=== PATIENT | male | born 1985 | race Caucasian/White ===

== ENCOUNTER 2018-09-17 13:03 | Emergency (ER) | payer SELFPAY ==
[2018-09-17] MEDS ORDERED: fentaNYL 100 MCG/2 ML INJ IVP ONE (14:17)
[2018-09-17] MEDS ORDERED: ONDANSETRON 4 MG/2 ML VIAL IVP ONE (14:17)
[2018-09-17] MEDS ORDERED: NS 1,000 ML IV ONE (14:17)
--- NOTE | 2018-09-17 15:06 | EDPHY ---
General Time Seen by Provider: 09/17/18 15:03 Narrative: CHIEF COMPLAINT: fall from ladder HISTORY OF PRESENT ILLNESS: Patient presents by private vehicle with complaints of fall from ladder. He states that he was painting his house when he lost his balance and fell approximately 10feet striking and "went right through a plate glass window." This happened just prior to arrival. He reports head strike and questionable loss of consciousness. He complains of right hand and little finger pain, right forearm laceration, upper back pain, left wrist pain. Rated as moderate to severe. Worse with palpation and movement. Minimal improvement at rest. Has some difficulty straightening his right little finger. Bleeding reported as heavy from right arm laceration. He reports "feeling a little foggy and out of it, my vision is blurred and I'm not sure if I passed out." Denies any neck pain or stiffness. No abdominal or lower extremity pain. Tetanus up to date. No other associated complaints or modifying factors. REVIEW OF SYSTEMS: 10 systems were reviewed and negative with the exception of the elements mentioned in the history of present illness. PCP: None SPECIALISTS: None PAST MEDICAL HISTORY: denies ANTICOAGULATED: none PAST SURGICAL HISTORY: no recent surgery SOCIAL HISTORY: daily smoker. FAMILY HISTORY: non contributory EXAMINATION: General Appearance: Alert, no distress Head: normocephalic, atraumatic. No Patino sign. No raccoon eyes. no depression or deformity. Eyes: Pupils equal and round, no conjunctival pallor or injection. EOMs symmetric and painless. No diplopia with EOM. No nystagmus. visual adams intact by confrontation. ENT, Mouth: Mucous membranes moist Neck: c-collar placed in triage and not removed until CT imaging. midline trachea. no crepitus or deformity. Respiratory: Lungs are clear to auscultation. no wheezing, rhonchi or crackles. no paradoxical movements Cardiovascular: Regular rate and rhythm. no murmur. symmetric radial and DP pulses. good signs of perfusion to RUE distal to laceration Gastrointestinal: Abdomen is soft and nontender. no tympany, rigidity or guarding. Back: no midline tenderness. no crepitus or deformity. Neurological: CN II-XII grossly intact. A&O, nonfocal, steady gait. light sensory symmetric upper and lower extremities. strength symmetric upper and lower extremities. Skin: Warm and dry, no rash. 5cm curvilinear laceration over the dorsal aspect of his right forearm. partial thickness injury without injury to the deep tissue structures. no foreign body. no pulsatile bleeding. Extremities: tenderness of the right forearm laceration with soft compartments of the RUE. no bony tenderness of shoulders, elbow, hips, knees, ankles or calcaneus bilaterally. there is a mallet finger deformity of the right little finger. ROM is otherwise within normal limits. there is mild tenderness of the left wrist without snuffbox tenderness. Normal and symmetric movement of the interossei. Psychiatric: Mood and affect normal DIFFERENTIAL DIAGNOSES: Including but not limited to concussion, skull fracture, intracranial hemorrhage , cervical sprain, cervical strain, finger fracture, finger sprain, pneumothorax , hemothorax, forearm fracture, complex laceration, wrist sprain, wrist fracture MDM: 1:55 p.m. Reported fall from ladder at 10 ft height with laceration to the right forearm and pain in multiple areas as above. I have ordered CT scans of the head cervical spine due to fall from 10 ft, difficulty with thought process and head strike with questionable loss of conscious. X-rays of the other areas of pain as been ordered. He will require suture repair of the right forearm laceration. Tetanus is up-to-date. IV will be established laboratory studies, IV fluid pain medication. 2:30 p.m. Notified by RN. Patient is refusing his laboratory studies. I discussed with him and he is willing to accept the risk after discussion of risks, benefits alternatives. He denies any flank or abdominal pain. No hematuria. 3:00 p.m. X-rays as read by me, without radiologist, reveal no fracture or dislocation. CT scans of head and cervical spine are pending. Wound has been anesthetize and will be irrigated. 4:[address] p[address] Notified by radiologist. CT scans of the head and cervical spine are within normal limits. I have re-evaluated the patient. C-collar cleared at this time. He has no pain in the neck midline. He has no radicular symptoms with full range of motion of the neck. He has minimal headache at this time. He is awake alert. No acute distress. I have close the laceration and discussed wound care. He has been placed in a left wrist splint for protection of the scaphoid bone. He has been placed in a right finger Stax splint due to the mallet finger deformity. I stressed the importance of follow up with hand surgeon for definitive care of the mallet finger and left wrist injury. We discussed wound care and return to ED for suture removal instructions. We discussed ED precautions for head injury, chest pain, back or abdominal pain. We also discussed signs of infection to watch for. I provided prescription of Flexeril. He has instructions to take ibuprofen and/or Tylenol as needed. I have answered all his questions. He is ambulatory and discharged in stable condition. PROCEDURE: Laceration repair Consent: Verbal Location: Right forearm Length of repair: 5 cm curvilinear Complexity: Complex Layer involvement: 2 layer closure Anesthesia: Local. 0.25% Marcaine with epinephrine, 10 mL Irrigation: Extensive Debridement: None Procedure description: Following good anesthesia, the wound was copiously irrigated. Wound bed was explored with a sterile glove, and there is no foreign body noted. There is injury to the subcutaneous tissue but no injury to the fascia or muscles of the posterior compartment. Wound borders were approximated well with good hemostasis. Tolerated well without complication. Suture/Staple material: Subcutaneous layer: 5-0 Vicryl, 6 [id number] sutures. Cutaneous layer: 4-0 Prolene, 6 simple interrupted sutures Wound care: Routine as discussed Suture/Staple removal: 10 Days SUPERVISION: This patient was independently evaluated without direct involvement of or examination by the attending physician. CONSULTATION: - Diagnostics Imaging: Discussed imaging studies w/ pathologist assistant Radiologist, I viewed and interpreted images myself - History History Review: I reviewed the patient's medical records Smoking Status: Current some day smoker - Objective Vital Signs: Initial Vital Signs Temperature (C) 97.5 F 09/17/18 13:05 Heart Rate 97 09/17/18 13:05 Respiratory Rate 18 09/17/18 13:05 Blood Pressure 135/103 H 09/17/18 13:05 O2 Sat (%) 97 09/17/18 13:05 O2 Delivery Mode Room Air Allergies/Adverse Reactions: No Known Allergies Allergy (Unverified 09/17/18 13:04) Home Medications: Medication Instructions Recorded Cyclobenzaprine [Flexeril 10 MG 10 mg PO TID PRN #15 tab 09/17/18 (*)] Medications Given: Discontinued Medications Fentanyl (Sublimaze) 100 mcg IVP EDNOW ONE Stop: 09/17/18 14:18 Last Admin: 09/17/18 15:03 Dose: 100 mcg Sodium Chloride (Ns) 1,000 mls @ 0 mls/hr IV EDNOW ONE; Wide Open PRN Reason: Protocol Stop: 09/17/18 14:18 Last Admin: 09/17/18 15:03 Dose: 1,000 mls Ondansetron HCl (Zofran) 4 mg IVP EDNOW ONE Stop: 09/17/18 14:18 Last Admin: 09/17/18 15:03 Dose: 4 mg Departure - Departure Disposition: Home, Routine, Self-Care Clinical Impression: Mallet finger of right finger(s) Closed head injury Qualifiers: Encounter type: initial encounter Qualified Code(s): S09.90XA - Unspecified injury of head, initial encounter Forearm laceration Qualifiers: Encounter type: initial encounter Laterality: right Qualified Code(s): S51.811A - Laceration without foreign body of right forearm, initial encounter Left wrist sprain Qualifiers: Encounter type: initial encounter Qualified Code(s): S63.502A - Unspecified sprain of left wrist, initial encounter Finger sprain Qualifiers: Encounter type: initial encounter Finger: little finger Sprain of finger site: interphalangeal joint Laterality: right Qualified Code(s): S63.636A - Sprain of interphalangeal joint of right little finger, initial encounter Condition: Good Instructions: Care For Your Stitches (ED), Jammed Finger (ED), Laceration (ED) , Concussion (ED), Head Injury (ED) Additional Instructions: 1. Thin layer of bacitracin once daily for the next 2 days 2. Keep the wound covered while showering for the next 3 days 3. Daily wound care as discussed 4. Return here for suture removal in 7-10 days 5. Return here for signs of infection as discussed including warmth, redness, fever, drainage from the site 6. return here for increasing pain surrounding the laceration 7. Do not submerge the wound in any water, hot tub, swimming pool until sutures removed 8. You will need to contact and follow up with Orthopedics for definitive care of your mallet finger injury and wrist sprain. 9. Ibuprofen 600 mg every 6-8 hours as needed for pain. 10. Flexeril as prescribed as needed for back pain and muscle soreness Referrals: Johnny Hackett MD [Medical Doctor] - As per Instructions Tiago Snyder MD [Medical Doctor] - As per Instructions Kallie Guardado MD [Medical Doctor] - As per Instructions Prescriptions: Cyclobenzaprine [Flexeril 10 MG (*)] 10 mg PO TID PRN #15 tab PRN Reason: Spasms
[2018-09-17 17:17] VITALS: BP 135/100
== END 2018-09-17 17:16 | disposition home or self-care (01) ==
PROC: 0HQDXZZ Repair Right Lower Arm Skin, External Approach (ICD-10-PCS; principal; 2018-09-17)
DX: S09.90XA Unspecified injury of head, initial encounter (principal); S51.811A Laceration without foreign body of right forearm, initial encounter; S63.502A Unspecified sprain of left wrist, initial encounter; S63.636A Sprain of interphalangeal joint of right little finger, initial encounter; W11.XXXA Fall on and from ladder, initial encounter; Y93.H9 Activity, other involving exterior property and land maintenance, building and construction; Y92.9 Unspecified place or not applicable; Y99.9 Unspecified external cause status
CPT/HCPCS: 96374; J2405; J3010; L3807; L3925

== ENCOUNTER 2019-02-10 12:33 | Emergency (ER) | payer OTHER ==
[2019-02-10] MEDS ORDERED: KETOROLAC 30 MG/1 ML SDV IVP ONE (13:57)
[2019-02-10] MEDS ORDERED: ACETAMINOPHEN 500 MG TAB PO ONE (13:57)
[2019-02-10] MEDS ORDERED: DIAZEPAM 10 MG/2 ML SYR IVP ONE (13:57)
--- NOTE | 2019-02-10 15:41 | EDPHY ---
H & P Stated Complaint: diffuse back/neck pain, fell down 13 steps 1 wk ago, flexeril not working Time Seen by Provider: 02/10/19 13:37 HPI/ROS: Chief complaint: Back pain History of present illness: This is a 33-year-old male who presents to the emergency department for back pain. He describes pain in the midportion of his back. He believes he is having muscle spasms as his pain is primarily on each side of his back. He states 1 week ago he fell down some steps. Initially he felt fine but over the next few days he had increasing pain in his back. He did go to urgent care and was diagnosed with muscle spasms and placed on Flexeril. He has been taking this as prescribed. However symptoms persist. He denies associated signs or symptoms including no pain or trauma to other parts of the body including the head, neck, chest, abdomen, pelvis or extremities. No neurologic symptoms such as paresthesias, weakness or paralysis or bowel or bladder dysfunction. Review of systems: A 10 point review of systems was obtained and other than described above was negative. - Personal History Current Tetanus/Diphtheria Vaccine: Yes Current Tetanus Diphtheria and Acellular Pertussis (TDAP): Yes - Medical/Surgical History Hx Asthma: No Hx Chronic Respiratory Disease: No Hx Diabetes: No Hx Cardiac Disease: No Hx Renal Disease: No Hx Cirrhosis: No Hx Alcoholism: No Hx HIV/AIDS: No Hx Splenectomy or Spleen Trauma: No Other PMH: left acl surgery 2007 - Social History Smoking Status: Former smoker - Physical Exam Exam: General Appearance: Alert, appears very uncomfortable. Eyes: Pupils equal and round no pallor or injection. ENT, Mouth: Mucous membranes moist. Respiratory: There are no retractions, lungs are clear to auscultation. Cardiovascular: Regular rate and rhythm. Gastrointestinal: Abdomen is soft and non tender, no masses, bowel sounds normal. Neurological: Alert and oriented x4. Strength and sensation intact and symmetrical. Patellar and Achilles reflexes 2+ bilaterally. Straight leg raise test is negative bilaterally. Skin: Warm and dry, no rashes. Musculoskeletal: Neck is supple non tender. Patient has tenderness over the midthoracic paraspinal muscles bilaterally. There is no specific point tenderness over the spine crying no crepitus, bony deformity or step-off. Extremities are symmetrical, full range of motion. Psychiatric: Patient is oriented X 3, there is no agitation. Constitutional: Initial Vital Signs Temperature (C) 36.7 C 02/10/19 12:57 Heart Rate 87 02/10/19 12:57 Respiratory Rate 16 02/10/19 12:57 Blood Pressure 115/96 H 02/10/19 12:57 O2 Sat (%) 94 02/10/19 12:57 O2 Delivery Mode Room Air Allergies/Adverse Reactions: No Known Allergies Allergy (Verified 02/10/19 13:00) Home Medications: Medication Instructions Recorded Cyclobenzaprine [Flexeril 10 MG 10 mg PO TID PRN #15 tab 09/17/18 (*)] Diazepam [Valium 2 MG (*)] 2 mg PO TID #10 tab 02/10/19 Medical Decision Making - Diagnostics Imaging: I viewed and interpreted images myself ED Course/Re-evaluation: Patient seen under the supervision of my secondary supervising physician Dr. Darek Vasquez. Patient presents for back pain after a fall. Vital signs are stable. He has a nonfocal neurologic exam. Thoracic spine x-ray is negative. He is symptomatically treated with improvement in pain. He will be discharged home. Home care is discussed including pain management. He is to follow up with a primary care doctor for recheck. Return precautions are given. The patient voiced understanding and agreement with plan. Differential Diagnosis: Included but not limited to contusion, sprain or strain, herniated intervertebral disc, bony fracture, doubtful spinal cord injury - Data Points Medications Given: Discontinued Medications Acetaminophen (Tylenol) 1,000 mg PO EDNOW ONE Stop: 02/10/19 13:58 Last Admin: 02/10/19 14:10 Dose: 1,000 mg Diazepam (Valium) 5 mg IVP EDNOW ONE Stop: 02/10/19 13:58 Last Admin: 02/10/19 14:10 Dose: 5 mg Ketorolac Tromethamine (Toradol) 30 mg IVP EDNOW ONE Stop: 02/10/19 13:58 Last Admin: 02/10/19 14:10 Dose: 30 mg Morphine Sulfate (Morphine) 4 mg IVP EDNOW ONE Stop: 02/10/19 15:51 Last Admin: 02/10/19 15:57 Dose: 4 mg Departure - Departure Disposition: Home, Routine, Self-Care Clinical Impression: Back pain Qualifiers: Back pain location: thoracic back pain Chronicity: acute Back pain laterality: bilateral Qualified Code(s): M54.6 - Pain in thoracic spine Condition: Good Instructions: Back Pain (ED) Additional Instructions: Follow-up with a primary care doctor for continued evaluation and care Use ibuprofen 800 mg every 6-8 hours for the next 2-3 days In addition take Tylenol 1000 mg every 6-8 hours for the next 2-3 days You have been prescribed Valium, please note it is sedating If symptoms worsen or new symptoms develop return to the emergency room for recheck Referrals: NONE *PRIMARY CARE P,. [Primary Care Provider] - As per Instructions [facility],. [Clinic] - As per Instructions Prescriptions: Diazepam [Valium 2 MG (*)] 2 mg PO TID #10 tab
[2019-02-10 16:30] VITALS: BP 122/78
== END 2019-02-10 16:28 | disposition home or self-care (01) ==
DX: M54.6 Pain in thoracic spine (principal); Z87.891 Personal history of nicotine dependence
CPT/HCPCS: 96374; J1885; J2270; J3360

== ENCOUNTER 2019-03-05 12:20 | Emergency (ER) | payer OTHER ==
[2019-03-05 12:29] VITALS: BP 124/77
--- NOTE | 2019-03-05 12:33 | EDPHY ---
H & P Stated Complaint: Mech fall, R wrist inj, good CMS, denies LOC, Time Seen by Provider: 03/05/19 12:32 HPI/ROS: HPI: This is a 33-year-old male who presents with Chief Complaint: Mech fall, R wrist injury, good CMS, denies LOC Location: Right thumb/wrist Quality: Injury and pain Duration: Prior to arrival Signs and Symptoms: No bleeding, no radiation, no numbness, no weakness, no tingling, no incontinence, no decreased range of motion, no swelling,+ pain, no fever Timing: Acute Severity: 03/27 Context: Patient is right-hand dominant, presents with accidentally falling on outstretched hand after hanging off of a Terrace trying to put plants on the ledge. He reports that he fell directly on his right outstretched hand. He is complaining of pain at the base of his right thumb with pain increased with flexion and extension. Denies LOC/head injury/neck pain/dizziness/nausea/ vomiting/amnesia. Modifying Factors: Applied Velcro brace with minimal relief Comment: ROS: A comprehensive 10 system review of systems is otherwise negative aside from elements mentioned in the history of present illness. MEDICAL/SURGICAL/SOCIAL HISTORY: Medical history: Generally healthy. Does not take any regular medications. Surgical history: Left ACL arthroscopy Social history: Nonsmoker. Admits to social alcohol use. Employed. CONSTITUTIONAL: Well-developed, well-nourished adult white male, awake and alert, no obvious distress HEENT: Atraumatic and normocephalic, PERRL, EOMI. Nares patent; no rhinorrhea; no nasal mucosal edema. Tympanic membranes clear. Oropharynx clear, no exudate and moist pink mucosa. Airway patent. No lymphadenopathy. No meningismus. Cardiovascular: Normal S1/S2, regular rate, regular rhythm, without murmur rub or gallop. PULMONARY/CHEST: Symmetrical and nontender. Clear to auscultation bilaterally. Good air movement. No accessory muscle usage. ABDOMEN: Soft, nondistended, nontender, no rebound, no guarding, no peritoneal signs, no masses or organomegaly. No CVAT. EXTREMITIES: 2/2 radial pulses, automatic buffer strength 5/5, right WRIST: Extension to 70, flexion to 80, radial deviation to 20 degree, ulnar deviation to 30, moderate scaphoid tenderness, no tenderness over ulnar styloid, no tenderness over radial styloid. no clubbing, no cyanosis or edema. NEUROLOGICAL: no focal neuro deficits. GCS 15. SKIN: Warm and dry, no erythema. no rash. Good capillary refill. Source: Patient Exam Limitations: No limitations - Personal History Current Tetanus/Diphtheria Vaccine: Yes - Medical/Surgical History Hx Asthma: No Hx Chronic Respiratory Disease: No Hx Diabetes: No Hx Cardiac Disease: No Hx Renal Disease: No Hx Cirrhosis: No Hx Alcoholism: No Hx HIV/AIDS: No Hx Splenectomy or Spleen Trauma: No Other PMH: left acl surgery 2007 - Social History Smoking Status: Former smoker Constitutional: Initial Vital Signs Temperature (C) 36.7 C 03/05/19 12:26 Heart Rate 74 03/05/19 12:26 Respiratory Rate 16 03/05/19 12:26 Blood Pressure 124/77 H 03/05/19 12:26 O2 Sat (%) 96 03/05/19 12:26 O2 Delivery Mode Room Air Allergies/Adverse Reactions: No Known Allergies Allergy (Verified 03/05/19 12:26) Home Medications: Medication Instructions Recorded Cyclobenzaprine [Flexeril 10 MG 10 mg PO TID PRN #15 tab 09/17/18 (*)] Diazepam [Valium 2 MG (*)] 2 mg PO TID #10 tab 02/10/19 oxyCODONE/APAP 5/325 [Percocet 1 - 2 tab PO Q4H PRN #10 tab 03/05/19 5/325 (*)] Medical Decision Making - Diagnostics Imaging Results: Imaging Impressions Wrist X-Ray 03/05/19 12:29 Impression: Nondisplaced scaphoid waist fracture. Procedures: Procedure: Splint placement. A right Ortho Glass thumb spica splint was applied. After application of the splint I returned and re-examined the patient. The splint was adequately immobilizing the joint and distal to the splint the patient's circulation and sensation was intact. ED Course/Re-evaluation: Vital signs reviewed and stable upon arrival. Ice pack applied and Percocet given Right wrist x-ray my read shows middle 3rd nondisplaced scaphoid fracture Placed in thumb spica Orthoglass splint, sling, orthopedic follow-up No signs of neurovascular compromise/tenting of skin/compartment syndrome/ extremities and joints examined above and below area of concern and are neurovascularly intact. This patient was seen under the supervision of my secondary supervising physician. I evaluated and cared for this patient with attending. Differential Diagnosis: Differential diagnosis includes but is not limited to radial fracture, carpal fracture, scaphoid fracture, phalanx fracture, nerve injury, ligament injury. - Data Points Medications Given: Discontinued Medications Oxycodone/Acetaminophen (Percocet 5/325) 1 tab PO EDNOW ONE Stop: 03/05/19 12:38 Last Admin: 03/05/19 12:42 Dose: 1 tab Departure - Departure Disposition: Home, Routine, Self-Care Clinical Impression: Closed fracture of scaphoid of right wrist Qualifiers: Encounter type: initial encounter Scaphoid bone location: middle third Fracture alignment: displaced Qualified Code(s): S62.021A - Displaced fracture of middle third of navicular [scaphoid] bone of right wrist, initial encounter for closed fracture Condition: Good Instructions: Hand Fracture (ED), How to Use a Sling (ED), Splint Care (ED) Additional Instructions: Keep the splint dry and in place until seen by Orthopedics. Wear the sling as needed while out of bed for comfort. Take Tylenol 650 mg every 4 hours and/or Ibuprofen 600 mg every 8 hours with food as needed for pain. Use Percocet every 6 hours as needed for severe/break through pain. Do not use Tylenol and Percocet concomitantly. Apply ice for 30 minutes at a time; 2-3 times per day for the next 1-2 days. Follow up with Orthopedics in 3-5 days at which time they will evaluate and recommend with you if conservative management versus surgery is indicated. Follow-Up: Please follow-up as noted above. Follow-up sooner if your condition worsens or if you develop any new problems. Call as soon as possible for an appointment. Be clear when you call for an appointment that this is an Emergency Department follow-up. Contact the Emergency Department if you have trouble arranging follow-up care. Our referrals are not based on your insurance network. When time allows, contact your insurance carrier to verify the referral physician is in your plan. If not, get a referral for an in-ip network architect. Return to the ER immediately if you experience new or worsening pain, discoloration, numbness, tingling, or any other symptoms that concern you. Referrals: Chad Dalton MD [Medical Doctor] - As per Instructions Prescriptions: oxyCODONE/APAP 5/325 [Percocet 5/325 (*)] 1 - 2 tab PO Q4H PRN #10 tab PRN Reason: Pain, Severe
[2019-03-05] MEDS ORDERED: OXYCODONE/APAP 5/325 TAB PO ONE (12:37)
== END 2019-03-05 13:10 | disposition home or self-care (01) ==
PROC: 2W3EX1Z Immobilization of Right Hand using Splint (ICD-10-PCS; principal; 2019-03-05)
DX: S62.021A Displaced fracture of middle third of navicular [scaphoid] bone of right wrist, initial encounter for closed fracture (principal); W17.89XA Other fall from one level to another, initial encounter; Y93.H2 Activity, gardening and landscaping; Z87.891 Personal history of nicotine dependence
CPT/HCPCS: A4565